=== PATIENT | female | born 1955 | race Caucasian/White ===

== ENCOUNTER 2017-03-24 18:16 | Observation (INO) | payer BC ==
--- NOTE | 2017-03-24 18:43 | ED.ABDFE ---
HPI - Time seen Time seen: 18:30 - PCP Primary Care Physician: TOM MASON - HPI Comment HPI Comment: PATIENT HAVE HAD MULTIPLE ABDOMEN AND PELVIC SURGERIES. HISTORY BOWEL OBSTRUCTION SEVERAL TIMES. STARTED HAVING ABDOMINAL PAIN AND VOMITING. CONCERN ABOUT OBSTRCUTION OF HER BOWEL. IN ED STARTED HAVING FREQUENT BOWEL MOVEMENTS. DIARRHEA STOOL DECREASING. SHE IS WEAK AND NAUSEATED. NO DYSURIA. - Complaint Chief Complaint Doctors Comments: ABDOMINAL PAIN, NAUSEA AND VOMITING. Chief Complaint:: PT. C/O ABDOMINAL PAIN, N/V/D, FEVER - Nurses notes reviewed Nurses Notes Review: Yes - Source History Provided: Patient - Mode of arrival Mode of Arrival: Ambulatory - Timing Onset of Chief Complaint: 03/24/17 Came on: Suddenly - Duration Duration: Constant Duration: Hours - Location Location: Diffuse - Severity Severity: Moderate - Quality Quality: Cramping, Sharp - Context Onset: Suddenly History of: Similar pain (dx) - Modifying Worsening Factors: Nothing Improving Factors: Nothing - Associated signs and symptoms Associated Signs and Symptoms: Nausea, Vomiting, Diarrhea PMH - PMH Past Medical History: Yes Past Medical History Comment: SMALL BOWEL OBSTRUCTION Past Surgical History: Yes Surgical History: Abdominal Surgery, Appendectomy, , Cholecystectomy, Hysterectomy, Other - Family History History of Family Medical Conditions: Yes Family Medical History: Cancer, [place], Coronary Artery Disease - Social History Does patient currently use any type of tobacco product: No Have you used tobacco products in the last 12 months: No Type of Tobacco Use: None Does any household member use tobacco: No Alcohol Use: None Do you use any recreational Drugs:: No Lives With: Spouse Lives Where: Home - infectious screening In the last 2 months have you had wt loss of >10#?: NO Have you had fever, night sweats or hemotysis?: No Have you traveled outside the country in the last 6 months?: No Isolation: Standard ROS - Review of Systems Constitutional: Weakness, Fatigue, Loss of Appetite. negative: Chills Eyes: No Symptoms Reported. negative: Eye Pain, Discharge ENTM: No Symptoms Reported. negative: Ear Pain, Nose Discharge, Nose Congestion , Throat Pain Respiratoy: No Symptoms Reported. negative: Productive Cough, Non-Productive Cough, Short of Breath, Wheezing, Hemoptysis Cardiovascular: No Symptoms Reported. negative: Chest Pain Gastrointestinal/Abdominal: Abdominal Pain, Diarrhea, Nausea, Vomiting. negative: Constipation Genitourinary: No Symptoms Reported. negative: Dysuria, Frequency, Hematuria Neurological: Headache, Weakness, Dizziness Musculoskeletal: Muscle Pain Integumentary: Dryness. negative: Lesions, Rash, Itching, Wound Hematologic/Lymphatic: No Symptoms Reported Endocrine: No Symptoms Reported All Other Systems: Reviewed and Negative PE - Vital Signs Vitals: Temperature 97.5 F Pulse Rate 97 Respiratory Rate 20 Blood Pressure 111/84 O2 Sat by Pulse Oximetry 97 - General Limitations: No Limitations General Appearance: Alert - Head Head Exam: Normal Inspection - Eyes Eye exam: Normal Appearance - ENT ENT Exam: Normal External Ear Exam - Neck Neck Exam: Normal Inspection - Chest Chest Inspection: Symmetric Chest Wall Rise - Respiratory Respiratory Exam: Normal Lung Sounds Bilat. negative: Respiratory Distress Respiratory Exam: Bilateral Clear to Auscultation - Cardiovascular Cardiovascular Exam: Regular Rate, Normal Rhythm, Normal Heart Sounds - Abdominal Exam Abdominal Exam: Normal Bowel Sounds, Soft, Tenderness Abdominal Tenderness: Diffuse, Moderate - Rectal Rectal Exam: Deferred - Back Back Exam: Normal Inspection - Extremeties Extremities Exam: Normal Inspection - External Exam: Female: Deferred : Speculum Exam (Female): Deferred : Bimanual Exam (female): Deferred - Neurologic Neurological Exam: Alert, Oriented X3 - Psychiatric Psychiatric Exam: Normal Affect, Normal Mood, Anxious - Skin Skin Exam: Normal Color MDM - Additional Information Obtained From Additional information provided by: Family - Differential Diagnosis Differential Diagnosis- Considerations may include:: Bowel Obstruction, Diverticular disease, Gastritus/PUD, Gastroenteritis, Urinary obstruction, Urinary tract infection, Urolithiasis Course - Treatment Treatment: SEE ORDERS - Reevaluation 1st: Improved (IMPROVING WITH IV FLUIDS AND PAIN MED.) - Consultation Consultation Comments: DISCUSS PATIENT WITH DR. FOURNIER. HE WILL ADMIT PATIENT. - Education/Counseling Education/Counseling: Patient, Family, Education Educated On: Treatment, Diagnosis, Needs for Follow Up ROR - Labs Reviewed Laboratory Results Reviewed?: Yes Result Diagrams: 03/25/17 04:05 03/25/17 04:05 Laboratory: WBC 4.9 X10^3/uL (3.6-10.0) 03/25/17 04:05 RBC 3.67 X10^6/uL (3.5-5.4) 03/25/17 04:05 Hgb 11.2 g/dL (12.0-16.0) L 03/25/17 04:05 Hct 33.4 % (36.0-47.0) L 03/25/17 04:05 MCV 90.9 fL (80.0-100.0) 03/25/17 04:05 MCH 30.6 pg (27.0-34.0) 03/25/17 04:05 MCHC 33.7 g/dL (33.0-35.0) 03/25/17 04:05 RDW 14.3 % (11.6-16.5) 03/25/17 04:05 Plt Count 134 X10^3/uL (150.0-450.0) L 03/25/17 04:05 MPV 8.7 fL (7.4-11.0) 03/25/17 04:05 Neut % 75.6 % (42.0-75.0) H 03/25/17 04:05 Lymph % 16.1 % (21.0-51.0) L 03/25/17 04:05 [place] % 7.9 % (0.0-13.0) 03/25/17 04:05 Eos % 0.1 % (0.9-2.9) L 03/25/17 04:05 Baso % 0.3 % (0.2-1.0) 03/25/17 04:05 Neut # 3.7 x10^3/uL (2.2-4.8) 03/25/17 04:05 Lymph # 0.8 X10^3/uL (1.3-2.9) L 03/25/17 04:05 [place] # 0.4 x10^3/uL (0.3-0.8) 03/25/17 04:05 Eos # 0.0 x10^3/uL (0.0-0.2) 03/25/17 04:05 Baso # 0.0 X10^3/uL (0.0-0.1) 03/25/17 04:05 Absolute Nucleated RBC 0.1 /100WBC 03/25/17 04:05 Sodium 141 mmol/L (136-145) 03/25/17 04:05 Corrected Sodium TNP 03/25/17 04:05 Potassium 3.1 mmol/L (3.5-5.1) L 03/25/17 04:05 Chloride 105 mmol/L (98-107) 03/25/17 04:05 Carbon Dioxide 26.1 mmol/L (21-32) 03/25/17 04:05 BUN 9 mg/dL (7-18) 03/25/17 04:05 Creatinine 0.52 mg/dL (0.55-1.02) L 03/25/17 04:05 Est GFR (MDRD) Af Amer > 60 (>60) 03/25/17 04:05 Est GFR (MDRD) Non-Af > 60 (>60) 03/25/17 04:05 Glucose 83 mg/dL (65-99) 03/25/17 04:05 Calcium 8.0 mg/dL (8.5-10.1) L 03/25/17 04:05 Corrected Calcium 9.2 mg/dL (8.5-10.1) 03/25/17 04:05 Total Bilirubin 0.70 mg/dL (0.2-1.0) 03/25/17 04:05 AST 31 Units/L (15-37) 03/25/17 04:05 ALT 43 Units/L (12-78) 03/25/17 04:05 Alkaline Phosphatase 61 Units/L (46-116) 03/25/17 04:05 Total Protein 6.1 g/dL (6.4-8.2) L 03/25/17 04:05 Albumin 2.5 g/dL (3.4-5.0) L 03/25/17 04:05 Globulin 3.6 g/dL (2.5-4.5) 03/25/17 04:05 Albumin/Globulin Ratio 0.7 Ratio (1.1-2.1) L 03/25/17 04:05 Amylase 29 Units/L (25-115) 03/24/17 20:42 Lipase 53 Units/L (73-393) L 03/24/17 20:42 Specimen Type Clean catch urine 03/24/17 23:09 Urine Color Yellow (YELLOW) 03/24/17 23:09 Urine Appearance Clear (CLEAR) 03/24/17 23:09 Urine pH 6.0 (5.0 - 8.0) 03/24/17 23:09 Ur Specific [place] 1.020 (1.000-1.030) 03/24/17 23:09 Urine Protein Negative (NEGATIVE) 03/24/17 23:09 Urine Glucose (UA) Negative (NEGATIVE) 03/24/17 23:09 Urine Ketones 3+ (NEGATIVE) 03/24/17 23:09 Urine Occult Blood Negative (NEGATIVE) 03/24/17 23:09 Urine Nitrite Negative (NEGATIVE) 03/24/17 23: Urine Bilirubin Negative (NEGATIVE) 03/24/17 23:09 Urine Urobilinogen Normal (NORMAL) 03/24/17 23:09 Ur Leukocyte Esterase Negative (NEGATIVE) 03/24/17 23:09 Urine RBC None seen /HPF (NEGATIVE) 03/24/17 23:09 Urine WBC None seen /HPF (NEGATIVE) 03/24/17 23:09 Ur Squamous Epith Cells Rare /HPF (NEGATIVE) 03/24/17 23:09 Urine Bacteria 1+ /HPF (NEGATIVE) 03/24/17 23:09 Ur Culture Indicated? No/not indicated 03/24/17 23:09 - XRAY XRAY Interpreted by: Radiologist (REPORT DISCUSS WITH PATIENT AND HER FAQMILY.) XRAY Findings: DISCUSS REPORT WITH PATIENT AND FAMILY. - Diagnosis Discharge Problem: Abdominal pain, Ileus, Gastroenteritis - Discharge Plan Disposition: ADMITTED INPATIENT Condition: Stable - Follow ups/Referrals - Instructions
[2017-03-24] MEDS ORDERED: ZOFRAN INJ 4 MG VIAL IVP ONE (18:46)
[2017-03-24] MEDS ORDERED: NS 1000 ML 1,000 ML IV ONE (18:46)
[2017-03-24] MEDS ORDERED: DEMEROL INJ IVP ONE (18:47)
[2017-03-24] MEDS ORDERED: ZOFRAN INJ 4 MG VIAL ONE (19:15)
[2017-03-24] MEDS ORDERED: DEMEROL INJ ONE (19:15)
[2017-03-24] MEDS ORDERED: NS 1000 ML 1,000 ML ONE (19:15)
--- NOTE | 2017-03-24 19:41 | CT ---
History: Abdominal pain, nausea, and vomiting. Exam: Non-contrast CT examination of the abdomen \T\ pelvis. Technique: Multiple CT images of the abdomen and pelvis were obtained from the lung bases to the pub ic symphysis without the IV administration of radiopaque contrast. Findings: The lung bases are clear. The heart is normal in size without a pericardial effusion. The liver, gal lbladder, adrenal glands, and spleen are unremarkable on these non contrasted images. There is no pn eumoperitoneum or hemoperitoneum seen. There is no bowel obstruction, large hernia defect, or acute mesenteric inflammatory change. There is no evidence for colitis, diverticulitis, or appendicitis. N o loculated intraperitoneal fluid collection is seen. Postoperative changes are seen in the left upp er quadrant (from a presumed previous bowel anastomosis) and in the stomach. There is a small residu al hiatal hernia. The gallbladder has been surgically removed. There is no convincing evidence for h igh-grade bowel obstruction. There is some nonspecific dilatation of several small bowel loops in th e left upper quadrant with a degree of small bowel fecalization seen in this location as well. No la rge hernia or convincing evidence for high-grade mechanical small bowel obstruction is seen, however . No RLQ inflammatory stranding is observed. No other significant abdominopelvic findings are apprec iated. Examination of the kidneys demonstrates no obstructing renal stones. No other renal, bladder, or abdominopelvic abnormalities are seen. No lytic bony lesions or acute fractures are seen. Impression: Postoperative changes are seen in the left upper quadrant (from a presumed previous briana l anastomosis) and in the stomach. There is a small residual hiatal hernia. The gallbladder has been surgically removed. There is no convincing evidence for high-grade bowel ob struction. There is some nonspecific dilatation of several small bowel loops in the left upper quadr ant with a degree of small bowel fecalization seen in this location as well. Please correlate. No ot her acute abdominopelvic abnormalities are appreciated. Reported By:
[2017-03-24 20:58] LABS: BLOOD UREA NITROGEN 13 mg/dL (7-18); CALCIUM 8.2 mg/dL (8.5-10.1); CARBON DIOXIDE 25.8 mmol/L (21-32); CHLORIDE 104 mmol/L (98-107); CREATININE 0.62 mg/dL (0.55-1.02); GLUCOSE 103 mg/dL (65-99); SODIUM 141 mmol/L (136-145); eGFR BLACK RACES > 60 (>60); eGFR NON BLACK RACES > 60 (>60)
[2017-03-24 21:04] LABS: ALANINE AMINOTRANSFERASE 49 Units/L (12-78); ALBUMIN 3.1 g/dL (3.4-5.0); ALKALINE PHOSPHATASE 76 Units/L (46-116); AMYLASE 29 Units/L (25-115); ASPARTATE AMINO TRANSFERASE 40 Units/L (15-37); COR CA(FOR HYPOALB) 8.9 mg/dL (8.5-10.1); LIPASE 53 Units/L (73-393); TOTAL PROTEIN 6.7 g/dL (6.4-8.2)
[2017-03-24 21:18] LABS: BASOPHILS % (AUTO) 0.1 % (0.2-1.0); EOSINOPHILS % (AUTO) 0.1 % (0.9-2.9); HEMATOCRIT 39.9 % (36.0-47.0); HEMOGLOBIN 13.2 g/dL (12.0-16.0); LYMPHOCYTES # (AUTO) 0.4 X10^3/uL (1.3-2.9); LYMPHOCYTES % (AUTO) 5.8 % (21.0-51.0); MEAN CORPUSCULAR HEMOGLOBIN 30.5 pg (27.0-34.0); MEAN CORPUSCULAR HGB CONC 33.2 g/dL (33.0-35.0); MONOCYTES # (AUTO) 0.3 x10^3/uL (0.3-0.8); MONOCYTES % (AUTO) 5.4 % (0.0-13.0); NEUTROPHILS # (AUTO) 5.6 x10^3/uL (2.2-4.8); NEUTROPHILS % (AUTO) 88.6 % (42.0-75.0); PLATELET COUNT 145 X10^3/uL (150.0-450.0); RED BLOOD COUNT 4.34 X10^6/uL (3.5-5.4); RED CELL DISTRIBUTION WIDTH 14.2 % (11.6-16.5); WHITE BLOOD COUNT 6.4 X10^3/uL (3.6-10.0)
[2017-03-24] MEDS ORDERED: TYLENOL 325 MG TAB PO PRN (22:17)
[2017-03-24] MEDS ORDERED: PHENERGAN INJ 25 MG IVP PRN (22:17)
[2017-03-24] MEDS ORDERED: MORPHINE SULFATE INJ 2 MG IVP PRN (22:17)
[2017-03-24] MEDS ORDERED: PEPCID 20 MG IV PREMIX* 20 MG/50 ML BAG IV PRN (22:17)
[2017-03-24] MEDS ORDERED: ZOFRAN INJ 4 MG VIAL IVP PRN (22:17)
[2017-03-24 23:22] VITALS: BMI 31.4
[2017-03-24] MEDS ORDERED: K-RIDER 10 MEQ/NS 100 ML 10 MEQ/100 ML BAG IV PRN (23:26)
[2017-03-24] MEDS ORDERED: POTASSIUM CHLORIDE LIQ 20 MEQ UDC PO PRN (23:26)
[2017-03-24] MEDS ORDERED: K-LYTE EFFERVESCENT PO PRN (23:26)
[2017-03-24 23:50] LABS: BILIRUBIN,URINE NEGATIVE (NEGATIVE); BLOOD/HEMOGLOBIN,URINE NEGATIVE (NEGATIVE); GLUCOSE, URINE NEGATIVE (NEGATIVE); KETONES,URINE 3+ (NEGATIVE); LEUKOCYTE ESTERASE ,URINE NEGATIVE (NEGATIVE); NITRITES,URINE NEGATIVE (NEGATIVE); PROTEIN,URINE NEGATIVE (NEGATIVE); UROBILINOGEN,URINE NORMAL (NORMAL)
[2017-03-24 23:57] LABS: APPEARANCE,URINE CLEAR (CLEAR); BACTERIA,URINE 1+ /HPF (NEGATIVE); COLOR,URINE YELLOW (YELLOW); RBC,URINE NONE SEEN /HPF (NEGATIVE); SQUAMOUS EPITHELIAL CELL,UR RARE /HPF (NEGATIVE)
[2017-03-25] MEDS: K-DUR TAB 20 MEQ PO PRN ×2 (00:46→06:36)
[2017-03-25 05:37] LABS: ALANINE AMINOTRANSFERASE 43 Units/L (12-78); ALBUMIN 2.5 g/dL (3.4-5.0); ALKALINE PHOSPHATASE 61 Units/L (46-116); ASPARTATE AMINO TRANSFERASE 31 Units/L (15-37); BLOOD UREA NITROGEN 9 mg/dL (7-18); CARBON DIOXIDE 26.1 mmol/L (21-32); CHLORIDE 105 mmol/L (98-107); COR CA(FOR HYPOALB) 9.2 mg/dL (8.5-10.1); CREATININE 0.52 mg/dL (0.55-1.02); GLUCOSE 83 mg/dL (65-99); SODIUM 141 mmol/L (136-145); TOTAL PROTEIN 6.1 g/dL (6.4-8.2); eGFR BLACK RACES > 60 (>60); eGFR NON BLACK RACES > 60 (>60)
[2017-03-25 06:25] LABS: BASOPHILS % (AUTO) 0.3 % (0.2-1.0); EOSINOPHILS % (AUTO) 0.1 % (0.9-2.9); HEMATOCRIT 33.4 % (36.0-47.0); HEMOGLOBIN 11.2 g/dL (12.0-16.0); LYMPHOCYTES # (AUTO) 0.8 X10^3/uL (1.3-2.9); LYMPHOCYTES % (AUTO) 16.1 % (21.0-51.0); MEAN CORPUSCULAR HEMOGLOBIN 30.6 pg (27.0-34.0); MEAN CORPUSCULAR HGB CONC 33.7 g/dL (33.0-35.0); MEAN CORPUSCULAR VOLUME 90.9 fL (80.0-100.0); MEAN PLATELET VOLUME 8.7 fL (7.4-11.0); MONOCYTES # (AUTO) 0.4 x10^3/uL (0.3-0.8); MONOCYTES % (AUTO) 7.9 % (0.0-13.0); NEUTROPHILS # (AUTO) 3.7 x10^3/uL (2.2-4.8); NEUTROPHILS % (AUTO) 75.6 % (42.0-75.0); PLATELET COUNT 134 X10^3/uL (150.0-450.0); RED BLOOD COUNT 3.67 X10^6/uL (3.5-5.4); RED CELL DISTRIBUTION WIDTH 14.3 % (11.6-16.5); WHITE BLOOD COUNT 4.9 X10^3/uL (3.6-10.0)
[2017-03-25] MEDS ORDERED: LEXAPRO PO SCH (11:00)
[2017-03-25] MEDS ORDERED: PREMARIN PO SCH (11:00)
[2017-03-25] MEDS ORDERED: PROTONIX TAB 40 MG PO SCH (11:00)
[2017-03-25] MEDS ORDERED: LOVAZA PO SCH ×2 (11:00→11:30)
[2017-03-25] MEDS ORDERED: LEXAPRO ONE (11:06)
--- NOTE | 2017-04-14 10:27 | DR.SSS ---
Short Stay Summary - Admission Date Date of Admission: 03/24/17 - Discharge Date Discharge Date: 03/25/17 - Admission Diagnoses Admission Diagnoses: Acute Gastroeneteritis Ileus Malaise - Discharge Diagnoses Discharge Diagnoses: Acute Gastroenteritis Ileus Hypokalemia Malaise - Chief Complaint Chief Complaint: Weakness with n/v/d - History of Present Illness History of Present Illness: PATIENT HAVE HAD MULTIPLE ABDOMEN AND PELVIC SURGERIES. HISTORY BOWEL OBSTRUCTION SEVERAL TIMES. STARTED HAVING ABDOMINAL PAIN AND VOMITING. CONCERN ABOUT OBSTRCUTION OF HER BOWEL. IN ED STARTED HAVING FREQUENT BOWEL MOVEMENTS. DIARRHEA STOOL DECREASING. SHE IS WEAK AND NAUSEATED. NO DYSURIA. - Past Medical History Additional Medical History: BOwel obstructions: Multiple - Past Surgical History Surgical History: Abdominal Surgery, Appendectomy, , Cholecystectomy, Hysterectomy, Other - Allergies Allergies/Adverse Reactions: Allergies Allergy/AdvReac Type Severity Reaction Status Date / Time Codeine Allergy Verified 03/24/17 18:20 - Medications Home Medications: Pantoprazole Sodium 40 mg [PROTONIX 40 MG *] 1 tab PO DAILY 03/25/17 [History Confirmed 03/25/17] - Family History Family Medical History: Cancer, [place], Coronary Artery Disease - Social History Does patient currently use any type of tobacco product: No Have you used tobacco products in the last 12 months: No Type of Tobacco Use: None Does any household member use tobacco: No Alcohol Use: None Drug Use: None - Review of Systems Constitutional: Weakness, Malaise Eyes: No Symptoms Reported ENT: No Symptoms Reported Respiratory: No Symptoms Reported Cardiovascular: No Symptoms Reported Gastrointestinal: Nausea, Vomiting, Abdominal Pain, Diarrhea Genitourinary: No Symptoms Reported Musculoskeletal: No Symptoms Reported Skin: No Symptoms Reported Neurological: No Symptoms Reported - Physical Exam Temperature: 99.0 F Blood Pressure: 111/84 Respiratory Rate: 20 Pulse Rate: 97 O2 Sat by Pulse Oximetry: 95 Oriented: Normal Eyes: Normal Ear: Normal Nose: Normal Throat: Normal Respiratory: Clear Throughout Cardiovascular: Normal : Normal Auscultation: Bowel Sounds: Increased Palpation: Normal Tenderness: Diffuse Skin: Normal Musculoskeletal: Normal Psychiatric: Normal Mood Description: Calm Affect: Normal Speech Pattern: Clear - Labs Labs: Laboratory Last Values WBC 4.9 X10^3/uL (3.6-10.0) 03/25/17 04:05 RBC 3.67 X10^6/uL (3.5-5.4) 03/25/17 04:05 Hgb 11.2 g/dL (12.0-16.0) L 03/25/17 04:05 Hct 33.4 % (36.0-47.0) L 03/25/17 04:05 MCV 90.9 fL (80.0-100.0) 03/25/17 04:05 MCH 30.6 pg (27.0-34.0) 03/25/17 04:05 MCHC 33.7 g/dL (33.0-35.0) 03/25/17 04:05 RDW 14.3 % (11.6-16.5) 03/25/17 04:05 Plt Count 134 X10^3/uL (150.0-450.0) L 03/25/17 04:05 MPV 8.7 fL (7.4-11.0) 03/25/17 04:05 Neut % 75.6 % (42.0-75.0) H 03/25/17 04:05 Lymph % 16.1 % (21.0-51.0) L 03/25/17 04:05 [place] % 7.9 % (0.0-13.0) 03/25/17 04:05 Eos % 0.1 % (0.9-2.9) L 03/25/17 04:05 Baso % 0.3 % (0.2-1.0) 03/25/17 04:05 Neut # 3.7 x10^3/uL (2.2-4.8) 03/25/17 04:05 Lymph # 0.8 X10^3/uL (1.3-2.9) L 03/25/17 04:05 [place] # 0.4 x10^3/uL (0.3-0.8) 03/25/17 04:05 Eos # 0.0 x10^3/uL (0.0-0.2) 03/25/17 04:05 Baso # 0.0 X10^3/uL (0.0-0.1) 03/25/17 04:05 Absolute Nucleated RBC 0.1 /100WBC 03/25/17 04:05 Sodium 141 mmol/L (136-145) 03/25/17 04:05 Corrected Sodium TNP 03/25/17 04:05 Potassium 3.7 mmol/L (3.5-5.1) 03/25/17 08:39 Chloride 105 mmol/L (98-107) 03/25/17 04:05 Carbon Dioxide 26.1 mmol/L (21-32) 03/25/17 04:05 BUN 9 mg/dL (7-18) 03/25/17 04:05 Creatinine 0.52 mg/dL (0.55-1.02) L 03/25/17 04:05 Est GFR (MDRD) Af Amer > 60 (>60) 03/25/17 04:05 Est GFR (MDRD) Non-Af > 60 (>60) 03/25/17 04:05 Glucose 83 mg/dL (65-99) 03/25/17 04:05 Calcium 8.0 mg/dL (8.5-10.1) L 03/25/17 04:05 Corrected Calcium 9.2 mg/dL (8.5-10.1) 03/25/17 04:05 Total Bilirubin 0.70 mg/dL (0.2-1.0) 03/25/17 04:05 AST 31 Units/L (15-37) 03/25/17 04:05 ALT 43 Units/L (12-78) 03/25/17 04:05 Alkaline Phosphatase 61 Units/L (46-116) 03/25/17 04:05 Total Protein 6.1 g/dL (6.4-8.2) L 03/25/17 04:05 Albumin 2.5 g/dL (3.4-5.0) L 03/25/17 04:05 Globulin 3.6 g/dL (2.5-4.5) 03/25/17 04:05 Albumin/Globulin Ratio 0.7 Ratio (1.1-2.1) L 03/25/17 04:05 Amylase 29 Units/L (25-115) 03/24/17 20:42 Lipase 53 Units/L (73-393) L 03/24/17 20:42 Specimen Type Clean catch urine 03/24/17 23:09 Urine Color Yellow (YELLOW) 03/24/17 23:09 Urine Appearance Clear (CLEAR) 03/24/17 23:09 Urine pH 6.0 (5.0 - 8.0) 03/24/17 23:09 Ur Specific [place] 1.020 (1.000-1.030) 03/24/17 23:09 Urine Protein Negative (NEGATIVE) 03/24/17 23: Urine Glucose (UA) Negative (NEGATIVE) 03/24/17 23:09 Urine Ketones 3+ (NEGATIVE) 03/24/17 23:09 Urine Occult Blood Negative (NEGATIVE) 03/24/17 23: Urine Nitrite Negative (NEGATIVE) 03/24/17 23: Urine Bilirubin Negative (NEGATIVE) 03/24/17 23: Urine Urobilinogen Normal (NORMAL) 03/24/17 23:09 Ur Leukocyte Esterase Negative (NEGATIVE) 03/24/17 23: Urine RBC None seen /HPF (NEGATIVE) 03/24/17 23: Urine WBC None seen /HPF (NEGATIVE) 03/24/17 23:09 Ur Squamous Epith Cells Rare /HPF (NEGATIVE) 03/24/17 23: Urine Bacteria 1+ /HPF (NEGATIVE) 03/24/17 23: Ur Culture Indicated? No/not indicated 03/24/17 23:09 - Assessment/Plan 1: ACute Gastroenteritis : IV Hydration, antiemetics, Labs 2: Hypokalemia: Labs, replacement - Hospital Course Hospital Course: The patient is a 61yo female who presented with N/V/D. Patient has hx of bowel obstructions. Patient complained of weakness. Potassium was low and required replacement. Patient had CT that revealed dilated small bowel. Patient received IV Hydration, antiemetics, and potassium replacement. Patient's symptoms improved and was DC home to be followed on OP basis. - Discharge Medications Discharge Medications: Pantoprazole Sodium 40 mg [PROTONIX 40 MG *] 1 tab PO DAILY 03/25/17 [History] - Discharge Disposition Discharge Disposition: Home
[2017-04-14 10:28] VITALS: BP 111/84
== END 2017-03-25 20:40 | disposition home or self-care (01) ==
LOC: ER 18:24 → MED/SURG 22:15
PROVIDERS: ADMIT Internal Medicine; ATTEND Internal Medicine
DX: K52.89 Other specified noninfective gastroenteritis and colitis (principal); R10.84 Generalized abdominal pain; E86.0 Dehydration; R11.2 Nausea with vomiting, unspecified; R19.7 Diarrhea, unspecified; K56.69 Other intestinal obstruction; E87.6 Hypokalemia; R53.81 Other malaise
CPT/HCPCS: 36415; 74176; 80053; 81001; 82150; 83690; 84132; 85025; 96365; 96374; 96375; 99284; A4222; G0378; J2175; J2405

== ENCOUNTER → 2017-08-23 | Outpatient (CLI) | payer BC ==
[2017-04-14 10:28] VITALS: BP 111/84
== END ==
LOC: RAD 09:46
PROVIDERS: ATTEND Specialist
DX: Z12.31 Encounter for screening mammogram for malignant neoplasm of breast (principal)
CPT/HCPCS: 77067

== ENCOUNTER 2023-08-20 11:18 | Observation (INO) ==
[2023-08-20 13:34] LABS: BASOPHILS % (AUTO) 0.4 % (0.2-1.0); EOSINOPHILS % (AUTO) 0.3 % (0.9-2.9); HEMATOCRIT 37.4 % (36.0-47.0); HEMOGLOBIN 12.9 g/dL (12.0-16.0); LYMPHOCYTES % (AUTO) 32.5 % (21.0-51.0); MEAN CORPUSCULAR HEMOGLOBIN 31.8 pg (27.0-34.0); MEAN CORPUSCULAR HGB CONC 34.4 g/dL (33.0-35.0); MEAN CORPUSCULAR VOLUME 92.4 fL (80.0-100.0); MONOCYTES # (AUTO) 0.4 x10^3/uL (0.3-0.8); MONOCYTES % (AUTO) 6.9 % (0.0-13.0); NEUTROPHILS # (AUTO) 3.7 x10^3/uL (2.2-4.8); NEUTROPHILS % (AUTO) 59.9 % (42.0-75.0); PLATELET COUNT 186 X10^3/uL (150.0-450.0); RED BLOOD COUNT 4.05 X10^6/uL (3.5-5.4); RED CELL DISTRIBUTION WIDTH 14.6 % (11.6-16.5); WHITE BLOOD COUNT 6.1 X10^3/uL (3.6-10.0)
[2023-08-20] MEDS: ROCEPHIN VIAL 1 GRAM 1 G in NS 100 ML IV 100 ML IV SCH (13:36)
[2023-08-20] MEDS: NS 1,000 ML IV 1,000 ML IV SCH ×2 (13:37→22:21)
[2023-08-20 14:31] LABS: ALANINE AMINOTRANSFERASE 22 Units/L (12-78); ALBUMIN 3.1 g/dL (3.4-5.0); ALKALINE PHOSPHATASE 100 Units/L (46-116); ASPARTATE AMINO TRANSFERASE 21 Units/L (15-37); BLOOD UREA NITROGEN 15 mg/dL (7-18); CALCIUM 8.4 mg/dL (8.5-10.1); CARBON DIOXIDE 32.9 mmol/L (21-32); CHLORIDE 104 mmol/L (98-107); COR CA(FOR HYPOALB) 9.1 mg/dL (8.5-10.1); GLUCOSE 100 mg/dL (65-99); POTASSIUM 3.7 mmol/L (3.5-5.1); SODIUM 142 mmol/L (136-145); TOTAL PROTEIN 6.7 g/dL (6.4-8.2); eGFR NON BLACK RACES > 60 (>60)
[2023-08-20 15:04] VITALS: BMI 25.9
[2023-08-20 16:25] LABS: BILIRUBIN,URINE NEGATIVE (NEGATIVE); BLOOD/HEMOGLOBIN,URINE NEGATIVE (NEGATIVE); GLUCOSE, URINE NEGATIVE (NEGATIVE); KETONES,URINE 2+ (NEGATIVE); LEUKOCYTE ESTERASE ,URINE NEGATIVE (NEGATIVE); NITRITES,URINE NEGATIVE (NEGATIVE); PH,URINE 6.5 (5.0 - 8.0); PROTEIN,URINE 1+ (NEGATIVE); UROBILINOGEN,URINE NORMAL (NORMAL)
[2023-08-20 16:34] LABS: APPEARANCE,URINE CLEAR (CLEAR); BACTERIA,URINE TRACE /HPF (NEGATIVE); COLOR,URINE PALE YELLOW (YELLOW); HYALINE CASTS, URINE RARE /LPF (NEGATIVE); RBC,URINE NONE SEEN /HPF (0-3); SQUAMOUS EPITHELIAL CELL,UR RARE /HPF (NEGATIVE)
[2023-08-20] MEDS ORDERED: TYLENOL 325 MG TAB PO PRN (19:52)
[2023-08-21 05:01] LABS: BASOPHILS % (AUTO) 0.4 % (0.2-1.0); EOSINOPHILS % (AUTO) 0.8 % (0.9-2.9); HEMATOCRIT 33.7 % (36.0-47.0); HEMOGLOBIN 11.7 g/dL (12.0-16.0); LYMPHOCYTES # (AUTO) 2.1 X10^3/uL (1.3-2.9); LYMPHOCYTES % (AUTO) 49.5 % (21.0-51.0); MEAN CORPUSCULAR HEMOGLOBIN 31.9 pg (27.0-34.0); MEAN CORPUSCULAR HGB CONC 34.6 g/dL (33.0-35.0); MEAN CORPUSCULAR VOLUME 92.2 fL (80.0-100.0); MEAN PLATELET VOLUME 8.2 fL (7.4-11.0); MONOCYTES # (AUTO) 0.4 x10^3/uL (0.3-0.8); MONOCYTES % (AUTO) 9.2 % (0.0-13.0); NEUTROPHILS # (AUTO) 1.7 x10^3/uL (2.2-4.8); NEUTROPHILS % (AUTO) 40.1 % (42.0-75.0); PLATELET COUNT 168 X10^3/uL (150.0-450.0); RED BLOOD COUNT 3.66 X10^6/uL (3.5-5.4); RED CELL DISTRIBUTION WIDTH 14.6 % (11.6-16.5); WHITE BLOOD COUNT 4.1 X10^3/uL (3.6-10.0)
[2023-08-21 05:09] LABS: ALANINE AMINOTRANSFERASE 20 Units/L (12-78); ALBUMIN 2.5 g/dL (3.4-5.0); ALKALINE PHOSPHATASE 86 Units/L (46-116); ASPARTATE AMINO TRANSFERASE 16 Units/L (15-37); BLOOD UREA NITROGEN 11 mg/dL (7-18); CALCIUM 7.5 mg/dL (8.5-10.1); CARBON DIOXIDE 28.8 mmol/L (21-32); CHLORIDE 109 mmol/L (98-107); COR CA(FOR HYPOALB) 8.7 mg/dL (8.5-10.1); CREATININE 0.44 mg/dL (0.55-1.02); GLUCOSE 83 mg/dL (65-99); MAGNESIUM 2.1 mg/dL (2.0-2.9); POTASSIUM 3.4 mmol/L (3.5-5.1); SODIUM 145 mmol/L (136-145); TOTAL PROTEIN 5.7 g/dL (6.4-8.2); eGFR NON BLACK RACES > 60 (>60)
--- NOTE | 2023-08-21 08:16 | DR.H&P ---
H&P - History & Physical for Day of: H&P Date: 08/20/23 - Chief Complaint Chief Complaint: WEAKNESS, DIZZINESS, NAUSEA, SUPRAPUBIC PAIN - History of Present Illness History of Present Illness: IS A 67 YEAR OLD PATIENT OF OURS. SHE PRESENTED TO THE OFFICE ON 08/20/23 WITH COMPLAINTS OF INCREASING WEAKNESS, NAUSEA, DIZZINESS, AND SUPRAPUBIC PAIN. HER SYMPTOMS REPORTEDLY STARTED ON 08/12/23. SHE DESCRIBED SUPRAPUBIC PAIN INTERMITTENT AND CRAMPING. SHE RATED PAIN A 4/10. SHE HAS HAD OUTPATIENT FLUIDS IN THE OFFICE WITHOUT IMPROVEMENT IN SYMPTOMS. ADDITIONALLY, SHE WAS TREATED FOR AN UPPER RESPIRATORY INFECTION LAST WEEK WITH A Z-PACK. A URINALYSIS WAS OBTAINED IN THE OFFICE AND REVEALED POSITIVE LEUKOCYTES AND NITRITES. SHE REPORTS IMPROVEMENT IN RESPIRATORY SX. HER PMH INCLUDES: GERD, HIATAL HERNIA, GASTRIC BYPASS, ANEMIA, APPENDECTOMY, CHOLECYSTECTOMY, HYSTERECTOMY, . DECISION WAS MADE TO ADMIT PATIENT TO THE HOSPITAL FOR FURTHER EVALUATION AND TREATMENT OF DEHYDRATION, UTI, AND GENERALIZED WEAKNESS. ON ARRIVAL TO THE HOSPITAL, VITALS WERE: 98.3-61-20-96%-120/60. LABS WERE OBTAINED. WBC 6.1, RBC 4.05, HGB 12.9, HCT 37.4, PLT COUNT 186, SODIUM 142, POTASSIUM 3.7, CHLORIDE 104, CARBON DIOXIDE 32.9, BUN 15, CREATININE 0.70, GLUCOSE 100, CALCIUM 8.4, TOTAL BILI 0.60, AST 21, ALT 22, ALK PHOS 100, TOTAL PROTEIN 6.7, ALBUMIN 3.1. URINALYSIS WAS OBTAINED AND REVEALED: WBC 0-2, LEUKOCYTES NEGATIVE, NITRITES NEGATIVE, BACTERIA TRACE, KETONES 2+, PROTEIN 1+. A URINE CULTURE WAS SET UP. ON ADMISSION, SHE WAS STARTED ON NORMAL SALINE AT 125 ML/HR, ROCEPHIN 1G IV DAILY, PROTONIX 40MG DAILY, PEPCID 20MG BID, GI COCKTAIL 15ML QID, TYLENOL 650MG PO Q6H PRN, AND KLONOPIN 0.5MG PO HS. OTHERWISE, WE PLAN TO FOLLOW UP WITH AM LABS AND CONTINUE TO MONITOR. TIME SPENT ON CLINICAL ASSESSMENT, REVIEWING LABS AND IMAGING, DECISION MAKING, AND DOCUMENTATION GREATER THAN 45 MINUTES. - Past Medical History Past Medical History: Anemia, GERD Additional Medical History: BOwel obstructions: Multiple, INSOMNIA - Past Surgical History Surgical History: Abdominal Surgery, Appendectomy, Cholecystectomy, , Hysterectomy, Other - Family History Family Medical History: Cancer, [place], Coronary Artery Disease - Social History Does patient currently use any type of tobacco product: No Have you used tobacco products in the last 12 months: No Type of Tobacco Use: None Does any household member use tobacco: No Alcohol Use: None Drug Use: None - Review of Systems Constitutional: Weakness. denies: Fever, Chills Eyes: No Symptoms Reported ENT: No Symptoms Reported Respiratory: No Symptoms Reported Cardiovascular: No Symptoms Reported Gastrointestinal: See HPI, Nausea, Abdominal Pain. denies: Vomiting, Diarrhea, Constipation Genitourinary: No Symptoms Reported Musculoskeletal: No Symptoms Reported Skin: No Symptoms Reported Neurological: Weakness - Physical Exam Vital Signs: Vital Signs Temperature 97.6 F Pulse Rate [Right Brachial] 61 Respiratory Rate 18 Blood Pressure [Left Arm] 117/62 O2 Sat by Pulse Oximetry 99 Oriented: Normal Eyes: Normal Ear: Normal Nose: Normal Throat: Normal Respiratory: Clear Throughout Cardiovascular: Normal : Normal Auscultation: Bowel Sounds: Normal Palpation: Normal Tenderness: Suprapubic, Mild Skin: Normal Musculoskeletal: Normal Psychiatric: Normal Mood Description: Calm Affect: Normal Speech Pattern: Clear - Assessment/Plan (1) Dehydration Status: Acute Plan: ADMIT, NORMAL SALINE AT 125 ML/HR, ROCEPHIN 1G IV DAILY, PROTONIX 40MG DAILY, PEPCID 20MG BID, GI COCKTAIL 15ML QID, TYLENOL 650MG PO Q6H PRN, AND KLONOPIN 0.5MG PO HS. (2) Abdominal pain Qualifiers: Abdominal location: lower abdomen, unspecified Qualified Code(s): R10.30 - Lower abdominal pain, unspecified Status: Acute (3) Bacteriuria Status: Acute (4) Generalized weakness Status: Acute (5) GERD (gastroesophageal reflux disease) Qualifiers: Esophagitis presence: esophagitis presence not specified Qualified Code(s): K21.9 - Gastro-esophageal reflux disease without esophagitis Status: Chronic Plan: RESUME PEPCID AND PROTONIX (6) Anemia Qualifiers: Anemia type: unspecified type Qualified Code(s): D64.9 - Anemia, unspecified Status: Chronic - Allergies Allergies/Adverse Reactions: Allergies Allergy/AdvReac Type Severity Reaction Status Date / Time codeine Allergy Verified 08/20/23 14:19 - Medications Home Medications: Home Medications Medication Instructions Recorded Confirmed clonazepam 0.5 mg tablet 1 tab PO QPM 09/29/22 08/20/23 hydrochlorothiazide 25 mg tablet 1 tab PO QDAY 09/29/22 08/20/23 pantoprazole 40 mg tablet,delayed 1 tab PO QDAY 09/29/22 08/20/23 release famotidine 20 mg tablet (Pepcid) 20 mg PO BID 08/20/23 08/20/23
[2023-08-21] MEDS: ROCEPHIN VIAL 1 GRAM 1 G in NS 100 ML IV 100 ML IV SCH (09:40)
[2023-08-21] MEDS: PEPCID TAB 20 MG PO SCH ×2 (09:40→20:54)
[2023-08-21] MEDS: PROTONIX TAB 40 MG PO SCH (09:40)
[2023-08-21] MEDS: LEVSIN/MAALOX/LIDOC VISC PO SCH ×4 (09:41→20:53)
[2023-08-21] MEDS: NS 1,000 ML IV 1,000 ML IV SCH ×4 (14:56→23:31)
[2023-08-21] MEDS: KLONOPIN TAB 0.5 MG PO SCH (20:54)
[2023-08-22] MEDS: RESTORIL CAP 15 MG PO PRN ×2 (02:00→22:46)
[2023-08-22 05:16] LABS: BASOPHILS % (AUTO) 0.5 % (0.2-1.0); EOSINOPHILS % (AUTO) 0.9 % (0.9-2.9); HEMATOCRIT 31.5 % (36.0-47.0); HEMOGLOBIN 10.9 g/dL (12.0-16.0); LYMPHOCYTES # (AUTO) 1.8 X10^3/uL (1.3-2.9); LYMPHOCYTES % (AUTO) 44.4 % (21.0-51.0); MEAN CORPUSCULAR HEMOGLOBIN 31.9 pg (27.0-34.0); MEAN CORPUSCULAR HGB CONC 34.7 g/dL (33.0-35.0); MEAN PLATELET VOLUME 8.5 fL (7.4-11.0); MONOCYTES # (AUTO) 0.4 x10^3/uL (0.3-0.8); MONOCYTES % (AUTO) 9.6 % (0.0-13.0); NEUTROPHILS # (AUTO) 1.9 x10^3/uL (2.2-4.8); NEUTROPHILS % (AUTO) 44.6 % (42.0-75.0); PLATELET COUNT 157 X10^3/uL (150.0-450.0); RED BLOOD COUNT 3.42 X10^6/uL (3.5-5.4); RED CELL DISTRIBUTION WIDTH 14.6 % (11.6-16.5); WHITE BLOOD COUNT 4.2 X10^3/uL (3.6-10.0)
[2023-08-22 05:31] LABS: ALANINE AMINOTRANSFERASE 18 Units/L (12-78); ALBUMIN 2.4 g/dL (3.4-5.0); ALKALINE PHOSPHATASE 78 Units/L (46-116); ASPARTATE AMINO TRANSFERASE 14 Units/L (15-37); BLOOD UREA NITROGEN 9 mg/dL (7-18); CALCIUM 7.5 mg/dL (8.5-10.1); CHLORIDE 112 mmol/L (98-107); COR CA(FOR HYPOALB) 8.8 mg/dL (8.5-10.1); CREATININE 0.46 mg/dL (0.55-1.02); GLUCOSE 82 mg/dL (65-99); POTASSIUM 3.5 mmol/L (3.5-5.1); SODIUM 145 mmol/L (136-145); TOTAL PROTEIN 5.4 g/dL (6.4-8.2); eGFR NON BLACK RACES > 60 (>60)
[2023-08-22] MEDS: NS 1,000 ML IV 1,000 ML IV SCH ×3 (05:50→21:12)
--- NOTE | 2023-08-22 06:51 | RAD ---
EXAM:KUBHISTORY:Pain distentionCOMPARISON:September 29, 2022FINDINGS:The intestinal gas pattern is nonobstructive. There is mild fecal retention and dilatation of the right colon. No definite ileus, mass, organ enlargement or ascites. Surgical clips and [place] noted in upper abdomen.IMPRESSION:No definite abnormality. See above; correlate for possible history of constipation.THIS IS AN ELECTRONICALLY VERIFIED FINAL [id number]/[id number] 6:47 AM - Electronically signed by Tito Alexander MD
[2023-08-22] MEDS ORDERED: CONSULT PHARMACY - POTASSIUM & MAGNESIUM XX SCH (07:00)
[2023-08-22] MEDS ORDERED: K-DUR TAB 20 MEQ PO SCH (09:00)
[2023-08-22] MEDS: LEVSIN/MAALOX/LIDOC VISC PO SCH ×4 (09:12→20:56)
[2023-08-22] MEDS: ROCEPHIN VIAL 1 GRAM 1 G in NS 100 ML IV 100 ML IV SCH (09:13)
[2023-08-22] MEDS: MAG-OX TAB PO SCH ×2 (09:13→10:30)
[2023-08-22] MEDS: PROTONIX TAB 40 MG PO SCH (09:13)
[2023-08-22] MEDS: PEPCID TAB 20 MG PO SCH ×2 (09:13→21:00)
[2023-08-22] MEDS: KLONOPIN TAB 0.5 MG PO SCH (20:57)
[2023-08-22] MEDS ORDERED: MIRALAX POWDER (1 DOSE 17 G) PO SCH (21:00)
--- NOTE | 2023-08-22 21:48 | PCM.PROG ---
Progress Note - Progress Note for Day of Date of Exam: 08/22/23 - Subjective Subjective: IS CURRENTLY OBSERVATION STATUS FOR TREATMENT OF DEHYDRATION, ABDOMINAL PAIN, BACTERIURIA, AND GENERALIZED WEAKNESS. SHE HAS A PMH OF GERD, HIATAL HERNIA, GASTRIC BYPASS, ANEMIA, APPENDECTOMY, CHOLECYSTECTOMY, HYSTERECTOMY, . TODAY, SHE IS ALERT AND ORIENTED, LYING IN BED ON MORNING ROUNDS. SHE CONTINUES WITH COMPLAINTS OF GENERALIZED WEAKNESS TODAY. SHE ALSO CONTINUES TO COMPLAIN OF ABDOMINAL CRAMPING, BUT DOES REPORT SLIGHT IMPROVEMENT IN SYMPTOMS TODAY. ON EXAMINATION, HEART IS REGULAR IN RATE AND RHYTHM. BILATERAL LUNGS ARE CLEAR TO AUSCULTATION. ABDOMEN IS ROUND, SOFT, AND NOTED WITH MILD SUPRAPUBIC TENDERNESS. NORMAL BOWEL SOUNDS NOTED IN ALL QUADRANTS. GOOD RANGE OF MOTION NOTED TO UPPER AND LOWER EXTREMITIES WITH NO EDEMA NOTED. HER VITALS THIS MORNING ARE: 97.7-72-18-99%-112/57. LABS WERE OBTAINED. WBC 4.2, RBC 3.42, HGB 10.9, HCT 31.5, PLT CONT 157, SODIUM 145, POTASSIUM 3.5, CHLORIDE 112, BUN 9, CREATININE 0.46, GLUCOSE 82, CALCIUM 7.5, MAGNESIUM 1.8, TOTAL BILI 0.40, AST 14, ALT 18, ALK PHOS 78, TOTAL PROTEIN 5.4, ALBUMIN 78. URINE CULTURE IS PENDING. A KUB WAS OBTAINED YESTERDAY AND REVEALED: The intestinal gas pattern is nonobstructive. There is mild fecal retention and dilatation of the right colon. No definite ileus, mass, organ enlargement or ascites. Surgical clips and [place] noted in upper abdomen. SHE IS CURRENTLY RECEIVING NORMAL SALINE AT 125 ML/HR, ROCEPHIN 1G IV DAILY, PROTONIX 40MG DAILY, PEPCID 20MG BID, GI COCKTAIL 15ML QID, TYLENOL 650MG PO Q6H PRN, AND KLONOPIN 0.5MG PO HS. TODAY, WE WILL ADD COLACE 100MG BID AND MIRALAX 17G HS. OTHERWISE, WE WILL FOLLOW UP WITH AM LABS AND CONTINUE TO MONITOR. TIME SPENT ON CLINICAL ASSESSMENT, REVIEWING LABS AND IMAGING, DECISION MAKING, AND DOCUMENTATION GREATER THAN 45 MINUTES. - Past Medical Family Social History Past Med/Fam/Surg Hx: No changes since H&P Allergies: Allergies codeine Allergy (Verified 08/20/23 14:19) - Review of Systems ROS: No change since H&P - Vital Signs and I&O's Vital Signs: Vital Signs Temperature 97.9 F Temperature 98 F Pulse Rate [Right Brachial] 68 Pulse Rate [Right Brachial] 61 Respiratory Rate 18 Respiratory Rate 20 Respiratory Rate 18 Respiratory Rate 18 Respiratory Rate 20 Respiratory Rate 18 Blood Pressure [Left Arm] 138/70 Blood Pressure [Left Arm] 144/93 O2 Sat by Pulse Oximetry 99 O2 Sat by Pulse Oximetry 94 Intake and Output: Intake & Output 08/20/23 08/21/23 08/22/23 08/23/23 11:59 11:59 11:59 11:59 Intake Total 2710 / 2710 3039 / 3039 2066 Balance 0 / 0 3039 / 3039 2066 - Physical Exam Oriented: Normal Eyes: Normal Ear: Normal Nose: Normal Throat: Normal Respiratory: Normal Cardiovascular: Normal : Normal Auscultation: Bowel Sounds: Normal Palpation: Normal Tenderness: Suprapubic, Mild Skin: Normal Musculoskeletal: Normal Psychiatric: Normal Mood Description: Calm Affect: Normal Speech Pattern: Clear - Laboratory and Diagnostics Result Diagrams: 08/22/23 04:40 08/22/23 04:40 Labs: 08/20/23 15:55 Urine,Clean Catch Urine Culture - Final Laboratory WBC 4.2 X10^3/uL (3.6-10.0) 08/22/23 04:40 RBC 3.42 X10^6/uL (3.5-5.4) L 08/22/23 04:40 Hgb 10.9 g/dL (12.0-16.0) L 08/22/23 04:40 Hct 31.5 % (36.0-47.0) L 08/22/23 04:40 MCV 92.0 fL (80.0-100.0) 08/22/23 04:40 MCH 31.9 pg (27.0-34.0) 08/22/23 04:40 MCHC 34.7 g/dL (33.0-35.0) 08/22/23 04:40 RDW 14.6 % (11.6-16.5) 08/22/23 04:40 Plt Count 157 X10^3/uL (150.0-450.0) 08/22/23 04:40 MPV 8.5 fL (7.4-11.0) 08/22/23 04:40 Neut % (Auto) 44.6 % (42.0-75.0) 08/22/23 04:40 Lymph % (Auto) 44.4 % (21.0-51.0) 08/22/23 04:40 [place] % (Auto) 9.6 % (0.0-13.0) 08/22/23 04:40 Eos % (Auto) 0.9 % (0.9-2.9) 08/22/23 04:40 Baso % (Auto) 0.5 % (0.2-1.0) 08/22/23 04:40 Neut # (Auto) 1.9 x10^3/uL (2.2-4.8) L 08/22/23 04:40 Lymph # (Auto) 1.8 X10^3/uL (1.3-2.9) 08/22/23 04:40 [place] # (Auto) 0.4 x10^3/uL (0.3-0.8) 08/22/23 04:40 Eos # (Auto) 0.0 x10^3/uL (0.0-0.2) 08/22/23 04:40 Baso # (Auto) 0.0 X10^3/uL (0.0-0.1) 08/22/23 04:40 Absolute Nucleated RBC 0.1 /100WBC 08/22/23 04:40 Sodium 145 mmol/L (136-145) 08/22/23 04:40 Corrected Sodium TNP 08/22/23 04:40 Potassium 3.5 mmol/L (3.5-5.1) 08/22/23 04:40 Chloride 112 mmol/L (98-107) H 08/22/23 04:40 Carbon Dioxide 30.0 mmol/L (21-32) 08/22/23 04:40 BUN 9 mg/dL (7-18) 08/22/23 04:40 Creatinine 0.46 mg/dL (0.55-1.02) L 08/22/23 04:40 Est GFR (MDRD) Af Amer > 60 (>60) 08/22/23 04:40 Est GFR (MDRD) Non-Af > 60 (>60) 08/22/23 04:40 Glucose 82 mg/dL (65-99) 08/22/23 04:40 Calcium 7.5 mg/dL (8.5-10.1) L 08/22/23 04:40 Corrected Calcium 8.8 mg/dL (8.5-10.1) 08/22/23 04:40 Magnesium 1.8 mg/dL (2.0-2.9) L 08/22/23 04:40 Total Bilirubin 0.40 mg/dL (0.2-1.0) 08/22/23 04:40 AST 14 Units/L (15-37) L 08/22/23 04:40 ALT 18 Units/L (12-78) 08/22/23 04:40 Alkaline Phosphatase 78 Units/L (46-116) 08/22/23 04:40 Total Protein 5.4 g/dL (6.4-8.2) L 08/22/23 04:40 Albumin 2.4 g/dL (3.4-5.0) L 08/22/23 04:40 Globulin 3.0 g/dL (2.5-4.5) 08/22/23 04:40 Albumin/Globulin Ratio 0.8 Ratio (1.1-2.1) L 08/22/23 04:40 Specimen Type Clean catch urine 08/20/23 15:55 Urine Color Pale yellow (YELLOW) 08/20/23 15:55 Urine Appearance Clear (CLEAR) 08/20/23 15:55 Urine pH 6.5 (5.0 - 8.0) 08/20/23 15:55 Ur Specific [place] 1.010 (1.000-1.030) 08/20/23 15:55 Urine Protein 1+ (NEGATIVE) 08/20/23 15:55 Urine Glucose (UA) Negative (NEGATIVE) 08/20/23 15:55 Urine Ketones 2+ (NEGATIVE) 08/20/23 15:55 Urine Blood Negative (NEGATIVE) 08/20/23 15:55 Urine Nitrite Negative (NEGATIVE) 08/20/23 15:55 Urine Bilirubin Negative (NEGATIVE) 08/20/23 15:55 Urine Urobilinogen Normal (NORMAL) 08/20/23 15:55 Ur Leukocyte Esterase Negative (NEGATIVE) 08/20/23 15:55 Urine RBC None seen /HPF (0-3) 08/20/23 15:55 Urine WBC 0-2 /HPF (0-5) 08/20/23 15:55 Ur Squamous Epith Cells Rare /HPF (NEGATIVE) 08/20/23 15:55 Urine Bacteria Trace /HPF (NEGATIVE) 08/20/23 15:55 Hyaline Casts Rare /LPF (NEGATIVE) 08/20/23 15:55 Urine Mucus Rare /HPF (NEGATIVE) 08/20/23 15:55 Ur Culture Indicated? Yes/culture set up 08/20/23 15:55 - Plan (1) Dehydration Status: Acute Plan: NORMAL SALINE AT 125 ML/HR, ROCEPHIN 1G IV DAILY, PROTONIX 40MG DAILY, PEPCID 20MG BID, GI COCKTAIL 15ML QID, COLACE 100MG BID, MIRALAX 17G PO HS, TYLENOL 650MG PO Q6H PRN, AND KLONOPIN 0.5MG PO HS. (2) Abdominal pain Status: Acute Qualifiers: Abdominal location: lower abdomen, unspecified Qualified Code(s): R10.30 - Lower abdominal pain, unspecified (3) Bacteriuria Status: Acute (4) Constipation Status: Acute Qualifiers: Constipation type: slow transit constipation Qualified Code(s): K59.01 - Slow transit constipation (5) Generalized weakness Status: Acute (6) GERD (gastroesophageal reflux disease) Status: Chronic Qualifiers: Esophagitis presence: esophagitis presence not specified Qualified Code(s): K21.9 - Gastro-esophageal reflux disease without esophagitis Plan: RESUME PEPCID AND PROTONIX (7) Anemia Status: Chronic Qualifiers: Anemia type: unspecified type Qualified Code(s): D64.9 - Anemia, unspecified
[2023-08-22] MEDS: COLACE CAP 100 MG PO SCH (22:44)
[2023-08-23] MEDS: NS 1,000 ML IV 1,000 ML IV SCH ×3 (01:25→10:09)
[2023-08-23 04:27] VITALS: O2SAT 99
[2023-08-23 05:35] LABS: BASOPHILS % (AUTO) 0.3 % (0.2-1.0); EOSINOPHILS % (AUTO) 0.8 % (0.9-2.9); HEMATOCRIT 30.8 % (36.0-47.0); HEMOGLOBIN 10.7 g/dL (12.0-16.0); LYMPHOCYTES # (AUTO) 2.3 X10^3/uL (1.3-2.9); LYMPHOCYTES % (AUTO) 53.1 % (21.0-51.0); MEAN CORPUSCULAR HEMOGLOBIN 32.2 pg (27.0-34.0); MEAN CORPUSCULAR HGB CONC 34.7 g/dL (33.0-35.0); MEAN CORPUSCULAR VOLUME 92.9 fL (80.0-100.0); MEAN PLATELET VOLUME 8.7 fL (7.4-11.0); MONOCYTES # (AUTO) 0.3 x10^3/uL (0.3-0.8); MONOCYTES % (AUTO) 6.4 % (0.0-13.0); NEUTROPHILS # (AUTO) 1.7 x10^3/uL (2.2-4.8); NEUTROPHILS % (AUTO) 39.4 % (42.0-75.0); PLATELET COUNT 147 X10^3/uL (150.0-450.0); RED BLOOD COUNT 3.31 X10^6/uL (3.5-5.4); RED CELL DISTRIBUTION WIDTH 14.7 % (11.6-16.5); WHITE BLOOD COUNT 4.3 X10^3/uL (3.6-10.0)
[2023-08-23 05:48] LABS: ALANINE AMINOTRANSFERASE 20 Units/L (12-78); ALBUMIN 2.4 g/dL (3.4-5.0); ALKALINE PHOSPHATASE 76 Units/L (46-116); ASPARTATE AMINO TRANSFERASE 16 Units/L (15-37); BLOOD UREA NITROGEN 10 mg/dL (7-18); CALCIUM 7.8 mg/dL (8.5-10.1); CARBON DIOXIDE 28.3 mmol/L (21-32); CHLORIDE 113 mmol/L (98-107); COR CA(FOR HYPOALB) 9.1 mg/dL (8.5-10.1); CREATININE 0.47 mg/dL (0.55-1.02); GLUCOSE 84 mg/dL (65-99); MAGNESIUM 1.9 mg/dL (2.0-2.9); POTASSIUM 4.5 mmol/L (3.5-5.1); SODIUM 144 mmol/L (136-145); TOTAL PROTEIN 5.3 g/dL (6.4-8.2); eGFR NON BLACK RACES > 60 (>60)
[2023-08-23] MEDS ORDERED: CONSULT PHARMACY - POTASSIUM & MAGNESIUM XX SCH (07:00)
[2023-08-23] MEDS: PEPCID TAB 20 MG PO SCH (08:50)
[2023-08-23] MEDS: PROTONIX TAB 40 MG PO SCH (08:50)
[2023-08-23] MEDS: COLACE CAP 100 MG PO SCH (08:51)
[2023-08-23] MEDS: MAG-OX TAB PO SCH ×2 (08:51→10:05)
[2023-08-23] MEDS: ROCEPHIN VIAL 1 GRAM 1 G in NS 100 ML IV 100 ML IV SCH (08:53)
[2023-08-23] MEDS: LEVSIN/MAALOX/LIDOC VISC PO SCH (09:10)
[2023-08-23 09:19] VITALS: RESP 18
[2023-08-23 09:43] VITALS: BP 124/58; PULSE 74; TEMP 98
== END 2023-08-23 11:10 | disposition home or self-care (01) ==
LOC: MED/SURG
PROVIDERS: ADMIT Internal Medicine; ATTEND Internal Medicine
DX: D64.89 Other specified anemias; E87.6 Hypokalemia; R42 Dizziness and giddiness; E86.0 Dehydration; K59.01 Slow transit constipation; Z98.84 Bariatric surgery status; R82.71 Bacteriuria; K44.9 Diaphragmatic hernia without obstruction or gangrene; R53.1 Weakness; R10.2 Pelvic and perineal pain; R10.30 Lower abdominal pain, unspecified; K21.9 Gastro-esophageal reflux disease without esophagitis